=== PATIENT | male | born 1995 | race Caucasian/White ===

== ENCOUNTER 2019-09-25 15:21 | Emergency (ER) | payer SELFPAY ==
[~2019-09-25] VITALS: Ht 167.6 cm; Wt 64.0 kg
[2019-09-25 15:36] VITALS: BP 123/79
[2019-09-25 18:20] LABS: BASOPHILS % 0.2 % (0.0-2.0); EOSINOPHILS % 0.6 % (0.0-5.0); HEMATOCRIT. 47.4 % (42.0-52.0); LYMPHOCYTES % 20.1 % (20.0-50.0); MEAN CORPUSCULAR HEMOGLOBIN 29.6 pg (28.0-32.0); MEAN CORPUSCULAR VOLUME 87.5 fL (80.0-94.0); MEAN PLATELET VOLUME 8.2 fl (7.4-10.4); MONOCYTES % 8.3 % (2.0-8.0); NEUTROPHILS % 70.8 % (40.0-76.0); PLATELET 276 x1000/uL (130-400); RED BLOOD CELL COUNT 5.41 mill/uL (4.7-6.1); RED CELL DISTRIBUTION WIDTH 12.7 % (11.6-14.6)
[2019-09-25 18:27] LABS: CHLORIDE 105 mEq/L (98-107)
[2019-09-25 19:48] LABS: PROTHROMBIN TIME 10.6 sec (9.6-11.0)
== END 2019-09-25 22:30 | disposition left against medical advice (07) ==
LOC: ER 15:21
DX: R10.9 Unspecified abdominal pain (principal); R11.2 Nausea with vomiting, unspecified
CPT/HCPCS: 36415; 74176; 80053; 85025; 99284